=== PATIENT | male | born 1945 | race Caucasian/White ===

== ENCOUNTER 2021-11-27 11:00 | Observation (INO) | payer MEDICARE, BC ==
[~2021-11-27] VITALS: Ht 190.5 cm; Wt 115.7 kg
[2021-11-27 11:47] LABS: HEMOGLOBIN 14.5 gm/dl (14.0-17.5); RED BLOOD COUNT 4.74 M/UL (4.20-5.50); WHITE BLOOD COUNT 9.3 K/UL (4.5-11.0)
[2021-11-27 12:06] LABS: BUN/CREATININE RATIO 17 (0-10)
[2021-11-27] MEDS ORDERED: VITAMIN D3125 MCG PO (15:09)
[2021-11-27] MEDS ORDERED: JALYN 0.5-0.41 EACH PO (15:09)
[2021-11-27] MEDS ORDERED: VITAMIN C1000 MG PO (15:11)
[2021-11-28 02:53] LABS: RED BLOOD COUNT 4.58 M/UL (4.20-5.50); WHITE BLOOD COUNT 8.8 K/UL (4.5-11.0)
[2021-11-28 03:31] LABS: BUN/CREATININE RATIO 11 (0-10)
[2021-11-28] MEDS ORDERED: ELIQUIS 5 MG TAB5 MG PO ×2 (13:13→13:23)
[2021-11-28] MEDS ORDERED: LOPRESSOR 25 MG25 MG PO ×2 (13:13→13:23)
[2021-11-28] MEDS ORDERED: MULTAQ 400 MG400 MG PO ×2 (13:13→13:23)
== END 2021-11-28 14:45 | disposition home or self-care (01) ==
LOC: ER1 11:00 → CDU 13:37 → PROG CARE 16:30
PROVIDERS: Emergency Medicine; Internal Medicine Cardiovascular Disease; Physician Assistant Medical; ADMIT Internal Medicine
DX: I48.0 Paroxysmal atrial fibrillation (principal); N40.0 Benign prostatic hyperplasia without lower urinary tract symptoms; I08.1 Rheumatic disorders of both mitral and tricuspid valves; I27.20 Pulmonary hypertension, unspecified; I26.99 Other pulmonary embolism without acute cor pulmonale; I82.409 Acute embolism and thrombosis of unspecified deep veins of unspecified lower extremity; I77.819 Aortic ectasia, unspecified site; I50.9 Heart failure, unspecified; R59.1 Generalized enlarged lymph nodes; Z20.822 Contact with and (suspected) exposure to COVID-19
CPT/HCPCS: 36415; 71045; 80048; 80053; 82550; 82553; 83735; 83880; 84439; 84443; 84484; 85025; 85027; 85379; 85610; 85730; 87040; 92960; 93005; 93312; 93320; 93970; 96374; 96375; 96376; 99285; G0378; J0696; J1160; J1200; J1644; J2250; J2270; Q9967; U0002